=== PATIENT | male | born 1960 | race Caucasian/White ===

== ENCOUNTER 2018-01-23 13:29 | Outpatient (CLI) | payer BC ==
[2018-01-25 12:47] LABS: HIV AG/AB 4TH GEN NON-REACTIVE (NON-REACTIVE)
== END 2018-01-23 13:30 | disposition home or self-care (01) ==
LOC: LAB 13:29
PROVIDERS: ATTEND Internal Medicine
DX: Z11.3 Encounter for screening for infections with a predominantly sexual mode of transmission (principal)
CPT/HCPCS: 81599; 87389; 87491; 87591

== ENCOUNTER 2021-12-19 06:29 | Day surgery (SDC) | payer OTHER ==
[2021-12-19] MEDS ORDERED: LACTATED RINGERS 1,000 ML IV ONE (06:35)
--- NOTE | 2021-12-19 07:11 | ANESTHESIA ---
Pre-Anesthesia VS, & Labs - Diagnosis wt loss, colon cancer screening, - Procedure EGD, colonoscopy Vital Signs: Temp Pulse Resp BP Pulse Ox 36.1 C L 70 13 138/85 H 100 12/19/21 06:46 12/19/21 06:46 12/19/21 06:46 12/19/21 06:46 12/19/21 06:46 Height: 6 ft 5 in Weight (kg): 101.7 kg Body Mass Index: 26.6 BMI Classification: Overweight - NPO >8 hours Last Fluid Intake: am prep - Lab Results Lab results reviewed: Yes Home Medications and Allergies Atorvastatin Calcium [Lipitor] 40 mg PO DAILY 11/30/15 Citalopram [CeleXA] 40 ng PO DAILY 11/30/15 Imipramine [Tofranil] 50 mg PO DAILY 11/30/15 Insulin Aspart (Vial) [NovoLOG] 11/30/15 Insulin Glargine,Hum.rec.anlog [Lantus] 10 units SQ HS 11/30/15 Liraglutide [Victoza 2-Juve] 1.2 11/30/15 Omeprazole [Prilosec] 20 mg PO DAILY 11/30/15 carvediloL [Coreg] 3.125 mg PO DAILY 11/30/15 lisinopriL [Lisinopril] 10 mg PO DAILY 11/30/15 metFORMIN [Glucophage] 500 mg PO DAILY 11/30/15 Allergies/Adverse Reactions: Allergies Allergy/AdvReac Type Severity Reaction Status Date / Time No Known Drug Allergies Allergy Verified 11/30/15 01:39 Anes History & Medical History - Anesthetic History Anesthesia Complications: reports: No previous complications Family history of Anesthesia Complications: Denies Family history of Malignant Hyperthermia: Denies - Medical History Cardiovascular: reports: Hypertension, High cholesterol Endocrine/Autoimmune: reports: Type 2 diabetes - Surgical History General: reports: Colonoscopy Exam General: Alert, Oriented x3, Cooperative Dental: WNL Mouth Openin Fingerbreadth Neck Mobility: Normal Mallampati classification: II Thyromental Distance: greater than 6 cm Respiratory: Lungs clear, Normal breath sounds, No respiratory distress Cardiovascular: Regular rate Neurological: Normal speech Mental/Cognitive Status: Alert/Oriented X3, Normal for patient Cognitive Status: Within normal limits Plan Anesthesia Type: Total IV Consent for Procedure(s) Verified and Reviewed: Yes Code Status: Attempt Resuscitation ASA classification: 2-Mild systemic disease Is this case an emergency?: No
[2021-12-19] MEDS ORDERED: fentaNYL 100 MCG/2 ML VIAL ONE ×2 (07:22→07:45)
[2021-12-19] MEDS ORDERED: PROPOFOL 500 MG/50 ML 500 MG/50 ML VIAL ONE (07:22)
[2021-12-19] MEDS ORDERED: MIDAZOLAM 2 MG/2 ML VIAL ONE (07:22)
[2021-12-19] MEDS ORDERED: ONDANSETRON 4 MG/2 ML VIAL ONE (07:28)
[2021-12-19] MEDS ORDERED: PROPOFOL 200 MG/20 ML VIAL IVP ONE (08:27)
[2021-12-19] MEDS ORDERED: LACTATED RINGERS 200 ML IV ONE (08:29)
[2021-12-19 08:42] VITALS: BP 99/57
--- NOTE | 2021-12-19 09:15 | ANESTHESIA POST OP EVALUATION ---
Anesthesia Post Eval - Post Anesthesia Eval Vitals: Last Vital Signs Temp 36.1 C L 12/19/21 08:42 Pulse 66 12/19/21 08:42 Resp 14 12/19/21 08:42 BP 99/57 L 12/19/21 08:42 Pulse Ox 97 12/19/21 08:42 CV Function Including HR & BP: Stable Pain Control: Satisfactory Nausea & Vomiting: Negative Mental Status: Baseline Respiratory Status: Airway Patent Hydration Status: Satisfactory Anesthesia Complications: None
[2021-12-19] MEDS ORDERED: ONDANSETRON 4 MG/2 ML VIAL IVP ONE (11:00)
== END 2021-12-19 06:30 | disposition home or self-care (01) ==
LOC: SDS 06:29
PROVIDERS: ATTEND Surgery
PROC: 0DB78ZX Excision of Stomach, Pylorus, Via Natural or Artificial Opening Endoscopic, Diagnostic (ICD-10-PCS; 2021-12-19)
PROC: 0DBM8ZZ Excision of Descending Colon, Via Natural or Artificial Opening Endoscopic (ICD-10-PCS; principal; 2021-12-19 07:30)
PROC: 0DB98ZX Excision of Duodenum, Via Natural or Artificial Opening Endoscopic, Diagnostic (ICD-10-PCS; 2021-12-19 07:30)
DX: Z12.11 Encounter for screening for malignant neoplasm of colon (principal); D12.4 Benign neoplasm of descending colon; R63.4 Abnormal weight loss; K29.70 Gastritis, unspecified, without bleeding; R11.2 Nausea with vomiting, unspecified; I27.21 Secondary pulmonary arterial hypertension; F41.9 Anxiety disorder, unspecified; F17.200 Nicotine dependence, unspecified, uncomplicated; Z12.5 Encounter for screening for malignant neoplasm of prostate
CPT/HCPCS: 36415; 43239; 45380; 84153; 84443; J7120

== ENCOUNTER 2021-12-24 19:58 | Outpatient (CLI) | payer OTHER ==
--- NOTE | 2021-12-25 12:47 | XRAY Report ---
PROCEDURE: Elbow 3 View LT INDICATIONS: ELBOW PAIN, PARATHESIA TECHNIQUE: 3 views of the elbow were acquired. COMPARISON: None FINDINGS: Bones: No fractures or dislocations. No suspicious bony lesions. Soft tissues: No elbow joint effusion. No suspicious soft tissue calcifications. IMPRESSION: No acute abnormality in the left elbow. Reviewed by: Dakota Solitario on 12/25/2021 12:46 PM [facility] Approved by: Dakota Solitario on 12/25/2021 12:46 PM [facility] Station ID: [id number]
== END 2021-12-24 19:59 | disposition home or self-care (01) ==
LOC: DI 19:58
PROVIDERS: ATTEND Internal Medicine
DX: M25.522 Pain in left elbow (principal); R20.2 Paresthesia of skin

== ENCOUNTER 2022-02-27 08:03 | Outpatient (CLI) | payer OTHER ==
[2022-02-27] MEDS ORDERED: IOVERSOL 320 50 ML VIAL ONE (08:18)
[2022-02-27] MEDS ORDERED: IOVERSOL 320 100 ML VIAL IVP ONE ×2 (08:18→10:44)
[2022-02-27] MEDS ORDERED: IOVERSOL 320 50 ML VIAL PO ONE (10:44)
--- NOTE | 2022-02-27 13:00 | CT Report ---
PROCEDURE: Abdomen/Pelvis W INDICATIONS: PANCREATITIS CONTRAST: IV CONTRAST: Optiray 320 ml: 100 PO CONTRAST: Optiray 320 ml50 TECHNIQUE: After the administration of oral and intravenous contrast, 5 mm thick sections acquired from the diap hragms to the symphysis. 5 mm thick coronal and sagittal reformats were acquired. For radiation dos e reduction, the following was used: automated exposure control, adjustment of mA and/or kV accordin g to patient size. COMPARISON: None. FINDINGS: Image quality: Excellent. ABDOMEN: Lung bases: Lung bases are clear. Heart size is normal. Eventration of the right hemidiaphragm wit h marked elevation present. Minimal associated right basilar atelectasis versus scarring. Solid organs: Liver and spleen are normal in size and enhancement. Gallbladder is unremarkable. Bi liary system is non dilated. Pancreas enhances normally. No adrenal nodules. Kidneys demonstrate n ormal size and enhancement, without hydronephrosis. Peritoneum and bowel: Bowel loops demonstrate normal wall thickness and caliber. No free fluid or a ir. Nodes and vessels: No retroperitoneal or mesenteric adenopathy by size criteria. Aorta and inferior vena cava are normal in size. Miscellaneous: No ventral hernias. PELVIS: Genitourinary: Bladder wall thickness is normal. Miscellaneous: No inguinal hernias or adenopathy. Bones: No suspicious bony lesions. No vertebral body compression fractures. Lumbar degenerative ch jerrica. Posterior disc protrusion at L2-L3 contributes to canal stenosis, which is likely severe. IMPRESSION: 1. No CT evidence of acute pancreatitis. 2. No evidence of acute abdominal process. 3. A disc protrusion at L2-L3 contributes to canal stenosis, which is likely severe. Reviewed by: Noel Kuhn MD on 02/27/2022 12:59 PM PDT Approved by: Noel Kuhn MD on 02/27/2022 12:59 PM PDT Station ID: [id number]
== END 2022-02-27 08:04 | disposition home or self-care (01) ==
LOC: DI 08:03
PROVIDERS: ATTEND Internal Medicine
DX: K85.90 Acute pancreatitis without necrosis or infection, unspecified (principal); M51.26 Other intervertebral disc displacement, lumbar region
CPT/HCPCS: 74177; Q9967